=== PATIENT | female | born 1960 | race Caucasian/White ===

== ENCOUNTER 2021-08-18 22:49 | Emergency (ER) | payer OTHER, MEDICAID ==
[~2021-08-18] VITALS: Ht 157.5 cm; Wt 90.7 kg
[~2021-08-18 22:49] MED LIST: INSLANTI; INSLISPI; PREMPRO; ROPI1TAB4
[2021-08-19] MEDS ORDERED: SODIUM CHLORIDE 0.9% 2,700 ML IV ONE (02:00)
[2021-08-19 03:31] LABS: Eosinophils # (auto) 0 10 ^3/uL (0-0.8); Eosinophils % (auto) 0.4 % (0.0-7.0); Lymphocytes # (auto) 2.8 10 ^3/uL (0.4-5.4); Mean Corpuscular Hemoglobin 31.6 pg (28.0-32.0); Monocytes # (auto) 0.6 10 ^3/uL (0-1.3); White Blood Cell 9.9 10^3/uL (4.4-10.8)
[2021-08-19 03:35] LABS: Basophils # (auto) 0 10 ^3/uL (0-0.2); Basophils % (auto) 0.5 % (0.0-2.0); Hematocrit 42.3 % (36.0-46.0); Lymphocytes % (auto) 28.4 % (10.0-50.0); Mean Corpuscular Volume 95.8 fL (80.0-100.0); Neutrophils # (auto) 6.4 10 ^3/uL (1.6-8.6); Neutrophils % (auto) 64.7 % (37.0-80.0); Red Blood Cells 4.42 10^6/uL (4.0-5.20); Red Cell Distribution Width 13.7 % (11.8-14.3)
[2021-08-19 03:45] LABS: Albumin 3.6 g/dL (3.4-5.0); BUN/Creatinine Ratio 16.9; Calcium 8.9 mg/dL (8.5-10.1); Potassium 4.6 mmol/L (3.5-5.1)
[2021-08-19 03:48] LABS: Bilirubin, Total 0.2 mg/dL (0.2-1.0); Total Protein 8.7 g/dL (6.4-8.2)
[2021-08-19 06:25] VITALS: BP 156/66
== END 2021-08-19 06:31 | disposition short-term general hospital (02) ==
LOC: EDBD 22:49 → ER 22:49
DX: S06.6X9A Traumatic subarachnoid hemorrhage with loss of consciousness of unspecified duration, initial encounter (principal); S00.03XA Contusion of scalp, initial encounter; F10.129 Alcohol abuse with intoxication, unspecified; E11.9 Type 2 diabetes mellitus without complications; E78.5 Hyperlipidemia, unspecified; Z88.6 Allergy status to analgesic agent; Z88.2 Allergy status to sulfonamides; Z90.49 Acquired absence of other specified parts of digestive tract; Z98.51 Tubal ligation status; W19.XXXA Unspecified fall, initial encounter; Y93.89 Activity, other specified; Y92.89 Other specified places as the place of occurrence of the external cause; Y99.8 Other external cause status
CPT/HCPCS: 36415; 70450; 80053; 80320; 85025; 93005; 96360; 99285; J1953; J7030; J7040; J7060

== ENCOUNTER 2023-12-04 23:04 | Emergency (ER) | payer OTHER, MEDICAID ==
[~2023-12-04] VITALS: Ht 160 cm; Wt 80.0 kg
[~2023-12-04 23:04] MED LIST changes: -ROPI1TAB4; +ROPI1TAB78
[2023-12-04] MEDS: LIDOCAINE 1% HCL (LOCAL ANESTH.) INJ 20ML MDV ID ONE (23:15)
[2023-12-04] MEDS: ACETAMINOPHEN 500 MG TAB PO ONE (23:15)
[2023-12-04 23:42] LABS: Basophils # (auto) 0.1 10 ^3/uL (0-0.2); Eosinophils # (auto) 0.1 10 ^3/uL (0-0.8); Eosinophils % (auto) 0.8 % (0.0-7.0); Hemoglobin 11.7 g/dL (12.2-16.2); Mean Corpuscular Hemoglobin 31.2 pg (28.0-32.0); Monocytes # (auto) 0.7 10 ^3/uL (0-1.3); White Blood Cell 14.7 10^3/uL (4.4-10.8)
[2023-12-04 23:44] LABS: Basophils % (auto) 0.7 % (0.0-2.0); Hematocrit 35.4 % (36.0-46.0); Lymphocytes # (auto) 2.1 10 ^3/uL (0.4-5.4); Mean Corpuscular Volume 94.7 fL (80.0-100.0); Monocytes % (auto) 4.6 % (0.0-12.0); Neutrophils # (auto) 11.8 10 ^3/uL (1.6-8.6); Neutrophils % (auto) 79.9 % (37.0-80.0); Red Blood Cells 3.74 10^6/uL (4.0-5.20)
[2023-12-04 23:53] LABS: Chloride 108 mmol/L (98-107); Potassium 3.8 mmol/L (3.5-5.1); Sodium 138 mmol/L (136-145)
[2023-12-04 23:54] LABS: Anion Gap 11 (5-15); Calcium 8.2 mg/dL (8.5-10.1); Carbon Dioxide 19 mmol/L (20-30)
[2023-12-04 23:59] LABS: BUN/Creatinine Ratio 10.3 (10.0-20.0); Blood Urea Nitrogen 7 mg/dL (9-23); Glucose 179 mg/dL (74-106)
[2023-12-05] LABS: Blood Alcohol 269.5 mg/dL (<10)
[2023-12-05] MEDS ORDERED: BACIOIN15 OP (01:09)
[2023-12-05] MEDS ORDERED: ACET500T58 PO (01:09)
[2023-12-05 01:50] VITALS: BP 142/99; PULSE 88; RESP 18; TEMP 98.5; O2SAT 97
[2023-12-05] MEDS: NEOMYCIN-BACITRACIN-POLYM UNITDOSE PKG TOP OINT TOP ONE (02:00)
== END 2023-12-05 02:00 | disposition home or self-care (01) ==
LOC: ER 23:04 → EDBD 23:04 → EDUNIT# 23:04 → ER 12-05 02:00
DX: S00.01XA Abrasion of scalp, initial encounter (principal); F10.129 Alcohol abuse with intoxication, unspecified; E11.9 Type 2 diabetes mellitus without complications; E78.5 Hyperlipidemia, unspecified; Y90.8 Blood alcohol level of 240 mg/100 ml or more; Z90.49 Acquired absence of other specified parts of digestive tract; Z88.2 Allergy status to sulfonamides; Z88.8 Allergy status to other drugs, medicaments and biological substances; Z98.51 Tubal ligation status; W19.XXXA Unspecified fall, initial encounter; Y93.89 Activity, other specified; Y92.481 Parking lot as the place of occurrence of the external cause; Y99.8 Other external cause status
CPT/HCPCS: 36415; 70450; 80048; 80320; 85025; 93005

== ENCOUNTER → 2023-12-15 | Outpatient (CLI) | payer OTHER, MEDICAID ==
[~2023-12-15] MED LIST changes: +ACET500T58 PO; +BACIOIN15 OP
== END | disposition home or self-care (01) ==
LOC: XYW 14:47
PROVIDERS: ATTEND Student in an Organized Health Care Education/Training Program
DX: R07.9 Chest pain, unspecified (principal); I51.89 Other ill-defined heart diseases
CPT/HCPCS: 93306